=== PATIENT | female | born 1950 | race Caucasian/White ===

== ENCOUNTER 2022-11-18 07:53 | Inpatient (IN) | payer MEDICARE, MEDICAID ==
[2022-11-18] MEDS ORDERED: Ondansetron ODT 4 MG TAB PO PRN (16:52)
[2022-11-18] MEDS ORDERED: Meclizine HCl 25 MG TAB PO PRN (16:52)
[2022-11-18] MEDS ORDERED: Acetaminophen 325 MG TAB PO PRN (16:55)
[2022-11-18] MEDS ORDERED: Promethazine 25 MG TAB PO PRN (18:40)
[2022-11-18] MEDS: HYDROcodone/Acetaminophen 10/325 mg Tablet PO SCH (18:43)
[2022-11-18] MEDS: Cyclobenzaprine 10 MG TAB PO SCH (20:53)
[2022-11-18] MEDS: Gabapentin 300 MG CAP PO SCH (20:53)
[2022-11-18] MEDS: traZODone HCl 50 MG TAB PO SCH (20:53)
[2022-11-18] MEDS: Mycophenolate 250 MG CAP PO SCH (20:54)
[2022-11-18] MEDS: hydrOXYzine 25 MG TAB PO SCH (20:54)
[2022-11-19] MEDS: HYDROcodone/Acetaminophen 10/325 mg Tablet PO SCH ×4 (00:42→17:04)
[2022-11-19 06:01] LABS: Sodium 136 mmol/L (136-145)
[2022-11-19 06:02] LABS: Albumin 2.9 g/dL (3.4-4.8); Alkaline Phosphatase 57 U/L (40-110); BUN (Urea Nitrogen) 20 mg/dL (9.8-20.1); Bilirubin, Total 0.4 mg/dL (0.2-1.2); Calc. Creatinine Clearance 93 mL/min (70-130); Calcium 8.7 mg/dL (7.6-10.4); Carbon Dioxide 27 mmol/L (23-31); Chloride 99 mmol/L (98-107); Estimated GFR 96; Globulin 2.8 g/dL (2.4-3.5); Glucose 92 mg/dL (83-110); Potassium 4.2 mmol/L (3.5-5.1); Protein, Total 5.7 g/dL (5.8-8.1)
[2022-11-19 06:03] LABS: ALT (SGPT) 28 U/L (8-55); AST (SGOT) 19 U/L (5-34)
[2022-11-19 06:06] LABS: Hematocrit 40.1 % (36.0-47.0); Hemoglobin 12.3 g/dL (12.0-16.0); White Blood Cell (WBC) Count 9.3 10x3/uL (4.8-10.8)
[2022-11-19 06:07] LABS: #Basophils 0.1 thou/uL (0.0-0.2); #Lymphocytes 1.4 thou/uL (1.20-3.40); #Monocytes 0.3 thou/uL (0.11-0.59); #Neutrophils 7.5 thou/uL (1.40-6.50); %Monocytes 2.9 % (0.0-10.0); %Neutrophils 81.1 % (42.0-75.0); Mean Corpuscular HGB CONC 30.7 g/dL (32.0-36.0); Mean Corpuscular Hemoglobin 23.2 pg (27.0-31.0); Mean Corpuscular Volume 75.7 fl (78.0-98.0); Mean Platelet Volume 8.7 fL (7.4-10.4); Platelet Count 181 10x3/uL (130-400); RBC Distribution Width 14.4 % (11.5-14.5)
[2022-11-19] MEDS: Levothyroxine Sodium 100 MCG TAB PO SCH (06:23)
[2022-11-19] MEDS: Levothyroxine Sodium 75 MCG TAB PO SCH (06:23)
[2022-11-19] MEDS: Ascorbic Acid 500 mg Chewable Tablet PO SCH (08:58)
[2022-11-19] MEDS: Mycophenolate 250 MG CAP PO SCH ×2 (09:00→21:06)
[2022-11-19] MEDS: dilTIAZem CD 120 MG CAP PO SCH (09:01)
[2022-11-19] MEDS: Cyclobenzaprine 10 MG TAB PO SCH ×3 (09:02→21:05)
[2022-11-19] MEDS: Rosuvastatin 10 MG TAB PO SCH (09:03)
[2022-11-19] MEDS: hydrOXYzine 25 MG TAB PO SCH ×3 (09:04→21:06)
[2022-11-19] MEDS: Gabapentin 300 MG CAP PO SCH ×3 (09:04→21:05)
[2022-11-19] MEDS: Clopidogrel Bisulfate 75 MG TAB PO SCH (09:04)
[2022-11-19] MEDS: Zinc Sulfate 220 MG CAP PO SCH (09:04)
[2022-11-19] MEDS: Senokot S 8.6-50 MG TAB PO PRN (15:03)
[2022-11-19] MEDS: traZODone HCl 50 MG TAB PO SCH (21:06)
[2022-11-20] MEDS: HYDROcodone/Acetaminophen 10/325 mg Tablet PO SCH ×5 (00:01→23:54)
[2022-11-20] MEDS: Levothyroxine Sodium 100 MCG TAB PO SCH (05:56)
[2022-11-20] MEDS: Levothyroxine Sodium 75 MCG TAB PO SCH (05:56)
[2022-11-20] MEDS: Gabapentin 300 MG CAP PO SCH ×3 (09:08→20:52)
[2022-11-20] MEDS: Zinc Sulfate 220 MG CAP PO SCH (09:08)
[2022-11-20] MEDS: dilTIAZem CD 120 MG CAP PO SCH (09:09)
[2022-11-20] MEDS: Cyclobenzaprine 10 MG TAB PO SCH ×3 (09:09→20:53)
[2022-11-20] MEDS: hydrOXYzine 25 MG TAB PO SCH ×3 (09:10→20:51)
[2022-11-20] MEDS: Ascorbic Acid 500 mg Chewable Tablet PO SCH (09:10)
[2022-11-20] MEDS: Mycophenolate 250 MG CAP PO SCH ×2 (09:10→20:51)
[2022-11-20] MEDS: Clopidogrel Bisulfate 75 MG TAB PO SCH (09:10)
[2022-11-20] MEDS: Rosuvastatin 10 MG TAB PO SCH (09:10)
[2022-11-20] MEDS: traZODone HCl 50 MG TAB PO SCH (20:51)
[2022-11-21] MEDS: HYDROcodone/Acetaminophen 10/325 mg Tablet PO SCH ×3 (05:52→17:44)
[2022-11-21] MEDS: Levothyroxine Sodium 100 MCG TAB PO SCH (05:52)
[2022-11-21] MEDS: Levothyroxine Sodium 75 MCG TAB PO SCH (05:52)
[2022-11-21] MEDS: Gabapentin 300 MG CAP PO SCH ×3 (08:28→20:39)
[2022-11-21] MEDS: Mycophenolate 250 MG CAP PO SCH ×2 (08:28→20:52)
[2022-11-21] MEDS: Zinc Sulfate 220 MG CAP PO SCH (08:28)
[2022-11-21] MEDS: Rosuvastatin 10 MG TAB PO SCH (08:29)
[2022-11-21] MEDS: hydrOXYzine 25 MG TAB PO SCH ×3 (08:29→20:40)
[2022-11-21] MEDS: Cyclobenzaprine 10 MG TAB PO SCH ×3 (08:29→20:53)
[2022-11-21] MEDS: Ascorbic Acid 500 mg Chewable Tablet PO SCH (08:30)
[2022-11-21] MEDS: Clopidogrel Bisulfate 75 MG TAB PO SCH (08:30)
[2022-11-21] MEDS: dilTIAZem CD 120 MG CAP PO SCH (08:30)
[2022-11-21] MEDS ORDERED: Ipratropium/Albuterol 3 ML NEB NEB PRN (19:01)
[2022-11-21] MEDS ORDERED: Meclizine HCl 25 MG TAB PO PRN (19:28)
[2022-11-21] MEDS: traZODone HCl 50 MG TAB PO SCH (20:39)
[2022-11-21] MEDS: Budesonide 0.5 MG/2 ML NEB NEB SCH (20:41)
[2022-11-21] MEDS ORDERED: Budesonide 0.5 MG/2 ML NEB NEB SCH (21:00)
[2022-11-22] MEDS: HYDROcodone/Acetaminophen 10/325 mg Tablet PO SCH ×5 (01:24→23:32)
[2022-11-22] MEDS: Levothyroxine Sodium 100 MCG TAB PO SCH (06:10)
[2022-11-22] MEDS: Levothyroxine Sodium 75 MCG TAB PO SCH (06:10)
[2022-11-22] MEDS: Rosuvastatin 10 MG TAB PO SCH (09:17)
[2022-11-22] MEDS: hydrOXYzine 25 MG TAB PO SCH ×3 (09:17→21:33)
[2022-11-22] MEDS: Zinc Sulfate 220 MG CAP PO SCH (09:17)
[2022-11-22] MEDS: Ascorbic Acid 500 mg Chewable Tablet PO SCH (09:17)
[2022-11-22] MEDS: Budesonide 0.5 MG/2 ML NEB NEB SCH ×2 (09:19→21:33)
[2022-11-22] MEDS: Gabapentin 300 MG CAP PO SCH ×3 (09:20→21:32)
[2022-11-22] MEDS: Clopidogrel Bisulfate 75 MG TAB PO SCH (09:21)
[2022-11-22] MEDS: Cyclobenzaprine 10 MG TAB PO SCH ×3 (09:21→21:37)
[2022-11-22] MEDS: Mycophenolate 250 MG CAP PO SCH ×2 (09:22→21:33)
[2022-11-22] MEDS: dilTIAZem CD 120 MG CAP PO SCH (09:22)
[2022-11-22] MEDS: traZODone HCl 50 MG TAB PO SCH (21:33)
[2022-11-23] MEDS: HYDROcodone/Acetaminophen 10/325 mg Tablet PO SCH ×4 (06:15→23:44)
[2022-11-23] MEDS: Levothyroxine Sodium 100 MCG TAB PO SCH (06:15)
[2022-11-23] MEDS: Levothyroxine Sodium 75 MCG TAB PO SCH (06:15)
[2022-11-23] MEDS ORDERED: Calcium Carbonate 500 MG ChewTAB PO PRN (08:01)
[2022-11-23] MEDS: Ascorbic Acid 500 mg Chewable Tablet PO SCH (08:11)
[2022-11-23] MEDS: Clopidogrel Bisulfate 75 MG TAB PO SCH (08:11)
[2022-11-23] MEDS: Cyclobenzaprine 10 MG TAB PO SCH ×3 (08:11→20:41)
[2022-11-23] MEDS: Rosuvastatin 10 MG TAB PO SCH (08:12)
[2022-11-23] MEDS: hydrOXYzine 25 MG TAB PO SCH ×3 (08:12→20:41)
[2022-11-23] MEDS: dilTIAZem CD 120 MG CAP PO SCH (08:13)
[2022-11-23] MEDS: Zinc Sulfate 220 MG CAP PO SCH (08:13)
[2022-11-23] MEDS: Gabapentin 300 MG CAP PO SCH ×3 (08:17→20:40)
[2022-11-23] MEDS: Mycophenolate 250 MG CAP PO SCH ×2 (08:18→20:40)
[2022-11-23] MEDS: Budesonide 0.5 MG/2 ML NEB NEB SCH ×2 (08:19→20:40)
[2022-11-23] MEDS: traZODone HCl 50 MG TAB PO SCH (20:41)
[2022-11-24] MEDS: HYDROcodone/Acetaminophen 10/325 mg Tablet PO SCH ×4 (05:33→23:26)
[2022-11-24] MEDS: Levothyroxine Sodium 75 MCG TAB PO SCH (05:33)
[2022-11-24] MEDS: Levothyroxine Sodium 100 MCG TAB PO SCH (05:33)
[2022-11-24] MEDS: Mycophenolate 250 MG CAP PO SCH ×2 (08:05→20:37)
[2022-11-24] MEDS: Budesonide 0.5 MG/2 ML NEB NEB SCH ×2 (08:05→20:37)
[2022-11-24] MEDS: Zinc Sulfate 220 MG CAP PO SCH (08:07)
[2022-11-24] MEDS: Clopidogrel Bisulfate 75 MG TAB PO SCH (08:07)
[2022-11-24] MEDS: Rosuvastatin 10 MG TAB PO SCH (08:07)
[2022-11-24] MEDS: Ascorbic Acid 500 mg Chewable Tablet PO SCH (08:07)
[2022-11-24] MEDS: Gabapentin 300 MG CAP PO SCH ×3 (08:07→20:38)
[2022-11-24] MEDS: dilTIAZem CD 120 MG CAP PO SCH (08:07)
[2022-11-24] MEDS: hydrOXYzine 25 MG TAB PO SCH ×3 (08:08→20:38)
[2022-11-24] MEDS: Cyclobenzaprine 10 MG TAB PO SCH ×3 (08:08→20:37)
[2022-11-24] MEDS: traZODone HCl 50 MG TAB PO SCH (20:38)
[2022-11-25] MEDS: Levothyroxine Sodium 100 MCG TAB PO SCH (05:32)
[2022-11-25] MEDS: Levothyroxine Sodium 75 MCG TAB PO SCH (05:32)
[2022-11-25] MEDS: HYDROcodone/Acetaminophen 10/325 mg Tablet PO SCH ×3 (05:33→17:48)
[2022-11-25] MEDS: hydrOXYzine 25 MG TAB PO SCH ×3 (08:02→20:58)
[2022-11-25] MEDS: Gabapentin 300 MG CAP PO SCH ×3 (08:03→20:58)
[2022-11-25] MEDS: Budesonide 0.5 MG/2 ML NEB NEB SCH ×2 (08:04→20:58)
[2022-11-25] MEDS: Ascorbic Acid 500 mg Chewable Tablet PO SCH (08:04)
[2022-11-25] MEDS: Zinc Sulfate 220 MG CAP PO SCH (08:04)
[2022-11-25] MEDS: Mycophenolate 250 MG CAP PO SCH ×2 (08:04→20:58)
[2022-11-25] MEDS: dilTIAZem CD 120 MG CAP PO SCH (08:05)
[2022-11-25] MEDS: Cyclobenzaprine 10 MG TAB PO SCH ×3 (08:05→20:58)
[2022-11-25] MEDS: Clopidogrel Bisulfate 75 MG TAB PO SCH (08:06)
[2022-11-25] MEDS: Rosuvastatin 10 MG TAB PO SCH (08:06)
[2022-11-25] MEDS: traZODone HCl 50 MG TAB PO SCH (20:58)
[2022-11-26] MEDS: HYDROcodone/Acetaminophen 10/325 mg Tablet PO SCH ×5 (01:18→23:52)
[2022-11-26] MEDS: Levothyroxine Sodium 100 MCG TAB PO SCH (05:17)
[2022-11-26] MEDS: Levothyroxine Sodium 75 MCG TAB PO SCH (05:17)
[2022-11-26 06:20] LABS: #Basophils 0.1 thou/uL (0.0-0.2); #Eosinphils 0.1 thou/uL (0.0-0.7); #Lymphocytes 1.3 thou/uL (1.20-3.40); #Monocytes 0.7 thou/uL (0.11-0.59); #Neutrophils 6.6 thou/uL (1.40-6.50); %Basophils 0.7 % (0.0-1.0); %Eosinophils 1.6 % (0.0-10.0); %Lymphocytes 15.1 % (21.0-51.0); %Monocytes 7.5 % (0.0-10.0); Hematocrit 25.7 % (36.0-47.0); Hemoglobin 9.3 g/dL (12.0-16.0); Mean Corpuscular HGB CONC 36.3 g/dL (32.0-36.0); Mean Corpuscular Hemoglobin 28.3 pg (27.0-31.0); Mean Platelet Volume 8.7 fL (7.4-10.4); Platelet Count 105 10x3/uL (130-400); RBC Distribution Width 16.1 % (11.5-14.5); Red Blood Cell (RBC) Count 3.29 mill/uL (4.20-5.40); White Blood Cell (WBC) Count 8.8 10x3/uL (4.8-10.8)
[2022-11-26 06:29] LABS: Anion Gap 10 mmol/L (10-20); BUN (Urea Nitrogen) 8 mg/dL (9.8-20.1); Calc. Creatinine Clearance 100 mL/min (70-130); Calcium 8.8 mg/dL (7.8-10.44); Carbon Dioxide 28 mmol/L (23-31); Chloride 103 mmol/L (98-107); Estimated GFR 98; Glucose 79 mg/dL (83-110); Sodium 138 mmol/L (136-145)
[2022-11-26] MEDS: Cyclobenzaprine 10 MG TAB PO SCH ×3 (08:56→20:38)
[2022-11-26] MEDS: Zinc Sulfate 220 MG CAP PO SCH (08:56)
[2022-11-26] MEDS: Gabapentin 300 MG CAP PO SCH ×3 (08:57→20:39)
[2022-11-26] MEDS: Ascorbic Acid 500 mg Chewable Tablet PO SCH (08:57)
[2022-11-26] MEDS: dilTIAZem CD 120 MG CAP PO SCH (08:58)
[2022-11-26] MEDS: Budesonide 0.5 MG/2 ML NEB NEB SCH ×2 (08:59→20:38)
[2022-11-26] MEDS: Mycophenolate 250 MG CAP PO SCH ×2 (08:59→20:42)
[2022-11-26] MEDS: Clopidogrel Bisulfate 75 MG TAB PO SCH (08:59)
[2022-11-26] MEDS: Rosuvastatin 10 MG TAB PO SCH (09:00)
[2022-11-26] MEDS: hydrOXYzine 25 MG TAB PO SCH ×3 (09:00→20:39)
[2022-11-26] MEDS ORDERED: Potassium Chloride 20 MEQ TAB PO SCH (10:45)
[2022-11-26] MEDS: traZODone HCl 50 MG TAB PO SCH (20:39)
[2022-11-27] MEDS: HYDROcodone/Acetaminophen 10/325 mg Tablet PO SCH ×3 (05:54→18:34)
[2022-11-27] MEDS: Levothyroxine Sodium 100 MCG TAB PO SCH (05:54)
[2022-11-27] MEDS: Levothyroxine Sodium 75 MCG TAB PO SCH (05:54)
[2022-11-27 06:32] LABS: #Basophils 0.1 thou/uL (0.0-0.2); #Eosinphils 0.1 thou/uL (0.0-0.7); #Lymphocytes 1.5 thou/uL (1.20-3.40); #Monocytes 0.6 thou/uL (0.11-0.59); #Neutrophils 5.5 thou/uL (1.40-6.50); %Basophils 0.9 % (0.0-1.0); %Eosinophils 1.8 % (0.0-10.0); %Lymphocytes 19.7 % (21.0-51.0); %Monocytes 7.5 % (0.0-10.0); %Neutrophils 70.2 % (42.0-75.0); Hematocrit 30.4 % (36.0-47.0); Hemoglobin 9.9 g/dL (12.0-16.0); Mean Corpuscular HGB CONC 32.6 g/dL (32.0-36.0); Mean Corpuscular Hemoglobin 25.6 pg (27.0-31.0); Mean Corpuscular Volume 78.3 fl (78.0-98.0); Mean Platelet Volume 8.3 fL (7.4-10.4); Platelet Count 112 10x3/uL (130-400); Red Blood Cell (RBC) Count 3.88 mill/uL (4.20-5.40); White Blood Cell (WBC) Count 7.8 10x3/uL (4.8-10.8)
[2022-11-27 06:38] LABS: Anion Gap 10 mmol/L (10-20); BUN (Urea Nitrogen) 9 mg/dL (9.8-20.1); Calc. Creatinine Clearance 89 mL/min (70-130); Calcium 9.1 mg/dL (7.8-10.44); Carbon Dioxide 30 mmol/L (23-31); Chloride 102 mmol/L (98-107); Estimated GFR 95; Glucose 92 mg/dL (83-110); Magnesium 1.4 mg/dL (1.6-2.6); Potassium 3.2 mmol/L (3.5-5.1); Sodium 139 mmol/L (136-145)
[2022-11-27] MEDS: Gabapentin 300 MG CAP PO SCH ×3 (09:48→20:15)
[2022-11-27] MEDS: Mycophenolate 250 MG CAP PO SCH ×2 (09:49→20:13)
[2022-11-27] MEDS: Ascorbic Acid 500 mg Chewable Tablet PO SCH (09:50)
[2022-11-27] MEDS: Clopidogrel Bisulfate 75 MG TAB PO SCH (09:50)
[2022-11-27] MEDS: hydrOXYzine 25 MG TAB PO SCH ×3 (09:50→20:14)
[2022-11-27] MEDS: Zinc Sulfate 220 MG CAP PO SCH (09:50)
[2022-11-27] MEDS: Rosuvastatin 10 MG TAB PO SCH (09:51)
[2022-11-27] MEDS: Cyclobenzaprine 10 MG TAB PO SCH ×3 (09:52→20:13)
[2022-11-27] MEDS: dilTIAZem CD 120 MG CAP PO SCH (10:02)
[2022-11-27] MEDS: Budesonide 0.5 MG/2 ML NEB NEB SCH ×2 (10:04→20:15)
[2022-11-27] MEDS ORDERED: Potassium Chloride 20 MEQ TAB PO SCH (17:00)
[2022-11-27] MEDS: Magnesium Oxide 400 MG TAB PO SCH (20:14)
[2022-11-27] MEDS: traZODone HCl 50 MG TAB PO SCH (20:14)
[2022-11-28] MEDS: HYDROcodone/Acetaminophen 10/325 mg Tablet PO SCH ×4 (01:00→17:08)
[2022-11-28] MEDS: Levothyroxine Sodium 100 MCG TAB PO SCH (05:47)
[2022-11-28] MEDS: Levothyroxine Sodium 75 MCG TAB PO SCH (05:48)
[2022-11-28 06:39] LABS: Anion Gap 13 mmol/L (10-20); BUN (Urea Nitrogen) 7 mg/dL (9.8-20.1); Calc. Creatinine Clearance 105 mL/min (70-130); Calcium 8.7 mg/dL (7.8-10.44); Carbon Dioxide 30 mmol/L (23-31); Chloride 102 mmol/L (98-107); Estimated GFR 99; Glucose 79 mg/dL (83-110); Magnesium 1.4 mg/dL (1.6-2.6); Potassium 3.6 mmol/L (3.5-5.1); Sodium 141 mmol/L (136-145)
[2022-11-28] MEDS: Mycophenolate 250 MG CAP PO SCH ×2 (08:29→20:20)
[2022-11-28] MEDS: Cyclobenzaprine 10 MG TAB PO SCH ×3 (08:30→20:21)
[2022-11-28] MEDS: Gabapentin 300 MG CAP PO SCH ×3 (08:30→20:20)
[2022-11-28] MEDS: Magnesium Oxide 400 MG TAB PO SCH ×2 (08:31→20:21)
[2022-11-28] MEDS: Rosuvastatin 10 MG TAB PO SCH (08:31)
[2022-11-28] MEDS: hydrOXYzine 25 MG TAB PO SCH ×3 (08:31→20:21)
[2022-11-28] MEDS: dilTIAZem CD 120 MG CAP PO SCH (08:31)
[2022-11-28] MEDS: Zinc Sulfate 220 MG CAP PO SCH (08:31)
[2022-11-28] MEDS: Ascorbic Acid 500 mg Chewable Tablet PO SCH (08:32)
[2022-11-28] MEDS: Clopidogrel Bisulfate 75 MG TAB PO SCH (08:32)
[2022-11-28] MEDS: Budesonide 0.5 MG/2 ML NEB NEB SCH ×2 (08:33→20:19)
[2022-11-28] MEDS: Sodium Chloride 0.65% Nasal 44 ML BOT EA NARE PRN (11:20)
[2022-11-28] MEDS: traZODone HCl 50 MG TAB PO SCH (20:21)
[2022-11-29] MEDS: HYDROcodone/Acetaminophen 10/325 mg Tablet PO SCH ×4 (01:08→17:35)
[2022-11-29] MEDS: Levothyroxine Sodium 100 MCG TAB PO SCH (05:40)
[2022-11-29] MEDS: Levothyroxine Sodium 75 MCG TAB PO SCH (05:40)
[2022-11-29] MEDS: hydrOXYzine 25 MG TAB PO SCH ×3 (08:35→21:13)
[2022-11-29] MEDS: Gabapentin 300 MG CAP PO SCH ×3 (08:35→21:14)
[2022-11-29] MEDS: dilTIAZem CD 120 MG CAP PO SCH (08:35)
[2022-11-29] MEDS: Zinc Sulfate 220 MG CAP PO SCH (08:35)
[2022-11-29] MEDS: Mycophenolate 250 MG CAP PO SCH ×2 (08:35→21:14)
[2022-11-29] MEDS: Cyclobenzaprine 10 MG TAB PO SCH ×3 (08:36→21:12)
[2022-11-29] MEDS: Rosuvastatin 10 MG TAB PO SCH (08:36)
[2022-11-29] MEDS: Magnesium Oxide 400 MG TAB PO SCH ×2 (08:36→21:13)
[2022-11-29] MEDS: Budesonide 0.5 MG/2 ML NEB NEB SCH ×2 (08:36→21:12)
[2022-11-29] MEDS: Ascorbic Acid 500 mg Chewable Tablet PO SCH (08:36)
[2022-11-29] MEDS: Clopidogrel Bisulfate 75 MG TAB PO SCH (08:36)
[2022-11-29] MEDS: traZODone HCl 50 MG TAB PO SCH (21:13)
[2022-11-30] MEDS: Levothyroxine Sodium 100 MCG TAB PO SCH (05:38)
[2022-11-30] MEDS: Levothyroxine Sodium 75 MCG TAB PO SCH (05:38)
[2022-11-30] MEDS: HYDROcodone/Acetaminophen 10/325 mg Tablet PO SCH ×4 (05:39→17:47)
[2022-11-30 06:01] LABS: #Eosinphils 0.2 thou/uL (0.0-0.7); #Lymphocytes 1.2 thou/uL (1.20-3.40); #Monocytes 0.5 thou/uL (0.11-0.59); #Neutrophils 3.1 thou/uL (1.40-6.50); %Lymphocytes 24.6 % (21.0-51.0); %Monocytes 8.9 % (0.0-10.0); %Neutrophils 61.5 % (42.0-75.0); Hematocrit 27.6 % (36.0-47.0); Hemoglobin 8.7 g/dL (12.0-16.0); Mean Corpuscular HGB CONC 31.6 g/dL (32.0-36.0); Mean Corpuscular Hemoglobin 24.9 pg (27.0-31.0); Mean Corpuscular Volume 78.8 fl (78.0-98.0); Mean Platelet Volume 8.9 fL (7.4-10.4); Platelet Count 109 10x3/uL (130-400); RBC Distribution Width 14.9 % (11.5-14.5); White Blood Cell (WBC) Count 5.1 10x3/uL (4.8-10.8)
[2022-11-30 06:17] LABS: Anion Gap 13 mmol/L (10-20); BUN (Urea Nitrogen) 8 mg/dL (9.8-20.1); Calc. Creatinine Clearance 107 mL/min (70-130); Calcium 8.5 mg/dL (7.8-10.44); Carbon Dioxide 28 mmol/L (23-31); Chloride 100 mmol/L (98-107); Estimated GFR 99; Glucose 83 mg/dL (83-110); Magnesium 1.5 mg/dL (1.6-2.6); Sodium 138 mmol/L (136-145)
[2022-11-30] MEDS: Magnesium Oxide 400 MG TAB PO SCH ×2 (09:34→20:21)
[2022-11-30] MEDS: Ascorbic Acid 500 mg Chewable Tablet PO SCH (09:34)
[2022-11-30] MEDS: Rosuvastatin 10 MG TAB PO SCH (09:34)
[2022-11-30] MEDS: Cyclobenzaprine 10 MG TAB PO SCH ×3 (09:34→20:15)
[2022-11-30] MEDS: Zinc Sulfate 220 MG CAP PO SCH (09:34)
[2022-11-30] MEDS: Clopidogrel Bisulfate 75 MG TAB PO SCH (09:34)
[2022-11-30] MEDS: hydrOXYzine 25 MG TAB PO SCH ×3 (09:35→20:21)
[2022-11-30] MEDS: Gabapentin 300 MG CAP PO SCH ×3 (09:35→20:20)
[2022-11-30] MEDS: dilTIAZem CD 120 MG CAP PO SCH (09:36)
[2022-11-30] MEDS: Mycophenolate 250 MG CAP PO SCH ×2 (09:36→20:20)
[2022-11-30] MEDS: Budesonide 0.5 MG/2 ML NEB NEB SCH ×2 (09:37→20:15)
[2022-11-30] MEDS: Sodium Chloride 0.65% Nasal 44 ML BOT EA NARE PRN (09:44)
[2022-11-30] MEDS ORDERED: Potassium Chloride 20 MEQ TAB PO SCH (16:00)
[2022-11-30] MEDS: traZODone HCl 50 MG TAB PO SCH (20:20)
[2022-12-01] MEDS: HYDROcodone/Acetaminophen 10/325 mg Tablet PO SCH ×5 (00:10→23:31)
[2022-12-01] MEDS: Levothyroxine Sodium 75 MCG TAB PO SCH (05:47)
[2022-12-01] MEDS: Levothyroxine Sodium 100 MCG TAB PO SCH (05:47)
[2022-12-01 06:16] LABS: Anion Gap 12 mmol/L (10-20); BUN (Urea Nitrogen) 8 mg/dL (9.8-20.1); Calc. Creatinine Clearance 103 mL/min (70-130); Calcium 8.5 mg/dL (7.8-10.44); Carbon Dioxide 30 mmol/L (23-31); Chloride 102 mmol/L (98-107); Estimated GFR 98; Glucose 81 mg/dL (83-110); Potassium 3.6 mmol/L (3.5-5.1); Sodium 140 mmol/L (136-145)
[2022-12-01] MEDS: Mycophenolate 250 MG CAP PO SCH ×2 (08:39→20:42)
[2022-12-01] MEDS: Gabapentin 300 MG CAP PO SCH ×3 (08:40→20:43)
[2022-12-01] MEDS: hydrOXYzine 25 MG TAB PO SCH ×3 (08:40→20:53)
[2022-12-01] MEDS: Senokot S 8.6-50 MG TAB PO PRN (08:40)
[2022-12-01] MEDS: Ascorbic Acid 500 mg Chewable Tablet PO SCH (08:41)
[2022-12-01] MEDS: Rosuvastatin 10 MG TAB PO SCH (08:41)
[2022-12-01] MEDS: Cyclobenzaprine 10 MG TAB PO SCH ×3 (08:41→20:43)
[2022-12-01] MEDS: Zinc Sulfate 220 MG CAP PO SCH (08:41)
[2022-12-01] MEDS: Potassium Chloride 20 MEQ TAB PO SCH (08:41)
[2022-12-01] MEDS: dilTIAZem CD 120 MG CAP PO SCH (08:41)
[2022-12-01] MEDS: Magnesium Oxide 400 MG TAB PO SCH ×2 (08:41→20:44)
[2022-12-01] MEDS: Clopidogrel Bisulfate 75 MG TAB PO SCH (08:41)
[2022-12-01] MEDS: Budesonide 0.5 MG/2 ML NEB NEB SCH ×2 (08:42→20:42)
[2022-12-01 16:17] VITALS: BMI 26.4
[2022-12-01] MEDS: traZODone HCl 50 MG TAB PO SCH (20:44)
[2022-12-02] MEDS: Levothyroxine Sodium 100 MCG TAB PO SCH (05:33)
[2022-12-02] MEDS: Levothyroxine Sodium 75 MCG TAB PO SCH (05:33)
[2022-12-02] MEDS: HYDROcodone/Acetaminophen 10/325 mg Tablet PO SCH ×2 (05:33→11:41)
[2022-12-02 07:35] VITALS: TEMP 98.2
[2022-12-02] MEDS: Ascorbic Acid 500 mg Chewable Tablet PO SCH (09:13)
[2022-12-02] MEDS: Gabapentin 300 MG CAP PO SCH (09:13)
[2022-12-02] MEDS: Mycophenolate 250 MG CAP PO SCH (09:14)
[2022-12-02] MEDS: Magnesium Oxide 400 MG TAB PO SCH (09:15)
[2022-12-02] MEDS: Cyclobenzaprine 10 MG TAB PO SCH (09:15)
[2022-12-02] MEDS: Rosuvastatin 10 MG TAB PO SCH (09:15)
[2022-12-02] MEDS: hydrOXYzine 25 MG TAB PO SCH (09:15)
[2022-12-02] MEDS: Potassium Chloride 20 MEQ TAB PO SCH (09:16)
[2022-12-02] MEDS: Zinc Sulfate 220 MG CAP PO SCH (09:16)
[2022-12-02] MEDS: dilTIAZem CD 120 MG CAP PO SCH (09:16)
[2022-12-02] MEDS: Clopidogrel Bisulfate 75 MG TAB PO SCH (09:16)
[2022-12-02] MEDS: Budesonide 0.5 MG/2 ML NEB NEB SCH (09:17)
[2022-12-02] MEDS: Sodium Chloride 0.65% Nasal 44 ML BOT EA NARE PRN (09:18)
[2022-12-02 13:26] VITALS: BP 108/71
== END 2022-12-02 13:50 | disposition home health service (06) | DRG 948 ==
LOC: NAV ACUTE 17:54
PROVIDERS: ADMIT Family Medicine; ATTEND Family Medicine
DX: R53.81 Other malaise (principal); J96.11 Chronic respiratory failure with hypoxia; I25.10 Atherosclerotic heart disease of native coronary artery without angina pectoris; J44.9 Chronic obstructive pulmonary disease, unspecified; I10 Essential (primary) hypertension; E78.5 Hyperlipidemia, unspecified; E03.9 Hypothyroidism, unspecified; E11.9 Type 2 diabetes mellitus without complications; J84.10 Pulmonary fibrosis, unspecified; G47.00 Insomnia, unspecified; G89.29 Other chronic pain; R19.7 Diarrhea, unspecified; R60.0 Localized edema; E87.6 Hypokalemia; D50.9 Iron deficiency anemia, unspecified; E83.42 Hypomagnesemia; Z90.710 Acquired absence of both cervix and uterus; Z98.890 Other specified postprocedural states; Z82.49 Family history of ischemic heart disease and other diseases of the circulatory system; Z87.891 Personal history of nicotine dependence; Z88.5 Allergy status to narcotic agent; Z91.040 Latex allergy status; Z88.0 Allergy status to penicillin; Z88.8 Allergy status to other drugs, medicaments and biological substances; Z79.899 Other long term (current) drug therapy; Z86.16 Personal history of COVID-19; Z79.02 Long term (current) use of antithrombotics/antiplatelets; Z79.890 Hormone replacement therapy
CPT/HCPCS: 36415; 80048; 80053; 83735; 85025; 94640; J1650; J7517; J7611; J7626

== ENCOUNTER 2023-04-05 12:55 | Inpatient (IN) | payer MEDICARE, MEDICAID ==
[2023-04-08] MEDS ORDERED: HumaLOG 300 UNITS/3 ML VIAL SC PRN (16:52)
[2023-04-08] MEDS ORDERED: cloNIDine 0.1 MG TAB PO PRN (16:52)
[2023-04-08] MEDS ORDERED: Acetaminophen 650 MG Suppository PR PRN (16:52)
[2023-04-08] MEDS ORDERED: Benzocaine/Menthol 1 LOZ LOZ PO PRN (16:52)
[2023-04-08] MEDS ORDERED: Glucagon 1 MG/ML KIT IM PRN (16:52)
[2023-04-08] MEDS ORDERED: Acetaminophen 325 MG TAB PO PRN (16:52)
[2023-04-08] MEDS ORDERED: Artificial Tear Sol 15 ML BOT EA EYE PRN (16:52)
[2023-04-08] MEDS ORDERED: Benzonatate 100 MG CAP PO PRN (16:52)
[2023-04-08] MEDS ORDERED: Dextrose 50% Abboject 50 ML SYRINGE SLOW IVP PRN (16:52)
[2023-04-08] MEDS: HYDROcodone/Acetaminophen 5/325 mg Tablet PO PRN (18:21)
[2023-04-08] MEDS: Budesonide 0.5 MG/2 ML NEB NEB SCH (18:23)
[2023-04-08] MEDS: Albuterol 2.5 MG (3 mL) NEB NEB SCH (18:23)
[2023-04-08] MEDS: Mycophenolate 250 MG CAP PO SCH (20:57)
[2023-04-08] MEDS: Gabapentin 300 MG CAP PO SCH (20:58)
[2023-04-08] MEDS: traZODone HCl 50 MG TAB PO SCH (20:58)
[2023-04-09 05:16] LABS: #Basophils 0.1 thou/uL (0.0-0.2); #Eosinphils 0.7 thou/uL (0.0-0.7); #Lymphocytes 1.3 thou/uL (1.20-3.40); #Monocytes 0.6 thou/uL (0.11-0.59); #Neutrophils 3.8 thou/uL (1.40-6.50); %Basophils 1.1 % (0.0-1.0); %Eosinophils 11.4 % (0.0-10.0); %Lymphocytes 19.9 % (21.0-51.0); %Monocytes 8.5 % (0.0-10.0); %Neutrophils 59.1 % (42.0-75.0); Hematocrit 35.4 % (36.0-47.0); Hemoglobin 11.4 g/dL (12.0-16.0); Mean Corpuscular HGB CONC 32.1 g/dL (32.0-36.0); Mean Corpuscular Volume 90.5 fl (78.0-98.0); Mean Platelet Volume 9.1 fL (7.4-10.4); Platelet Count 189 10x3/uL (130-400); RBC Distribution Width 14.5 % (11.5-14.5); Red Blood Cell (RBC) Count 3.91 mill/uL (4.20-5.40); White Blood Cell (WBC) Count 6.5 10x3/uL (4.8-10.8)
[2023-04-09 05:31] LABS: ALT (SGPT) 12 U/L (8-55); AST (SGOT) 16 U/L (5-34); Albumin 3.4 g/dL (3.4-4.8); Alkaline Phosphatase 60 U/L (40-110); Anion Gap 13 mmol/L (10-20); BUN (Urea Nitrogen) 10 mg/dL (9.8-20.1); Bilirubin, Total 0.6 mg/dL (0.2-1.2); Calc. Creatinine Clearance 85 mL/min (70-130); Carbon Dioxide 31 mmol/L (23-31); Chloride 98 mmol/L (98-107); Estimated GFR 95; Globulin 2.9 g/dL (2.4-3.5); Glucose 85 mg/dL (83-110); Potassium 4.6 mmol/L (3.5-5.1); Protein, Total 6.3 g/dL (5.8-8.1); Sodium 137 mmol/L (136-145)
[2023-04-09] MEDS: Levothyroxine 150 MCG TAB PO SCH (05:33)
[2023-04-09] MEDS: Enoxaparin 40 MG (0.4 mL) SYRINGE SC SCH (08:29)
[2023-04-09] MEDS: Clopidogrel Bisulfate 75 MG TAB PO SCH (08:32)
[2023-04-09] MEDS: Empagliflozin 10 MG TAB PO SCH (08:33)
[2023-04-09] MEDS: Atorvastatin Calcium 20 MG TAB PO SCH (08:33)
[2023-04-09] MEDS: HYDROcodone/Acetaminophen 5/325 mg Tablet PO PRN (08:38)
[2023-04-09] MEDS: Spironolactone 25 MG TAB PO SCH (11:50)
[2023-04-09] MEDS: Senokot S 8.6-50 MG TAB PO PRN (15:31)
[2023-04-09] MEDS: tiZANidine HCl 4 MG TAB PO PRN (18:46)
[2023-04-10] MEDS: Ondansetron ODT 4 MG TAB PO PRN (17:14)
[2023-04-12] MEDS: Guaifenesin DM 100-10/5 ML UDCUP PO PRN (06:16)
[2023-04-12] MEDS: Calcium Carbonate 500 MG ChewTAB PO PRN (18:46)
[2023-04-13 05:54] LABS: #Basophils 0.1 thou/uL (0.0-0.2); #Eosinphils 0.4 thou/uL (0.0-0.7); #Lymphocytes 1.4 thou/uL (1.20-3.40); #Monocytes 0.8 thou/uL (0.11-0.59); #Neutrophils 6.6 thou/uL (1.40-6.50); %Basophils 0.7 % (0.0-1.0); %Lymphocytes 14.7 % (21.0-51.0); %Neutrophils 71.5 % (42.0-75.0); Hemoglobin 10.9 g/dL (12.0-16.0); Mean Corpuscular Hemoglobin 29.2 pg (27.0-31.0); Mean Corpuscular Volume 91.2 fl (78.0-98.0); Platelet Count 198 10x3/uL (130-400); RBC Distribution Width 14.6 % (11.5-14.5); Red Blood Cell (RBC) Count 3.73 mill/uL (4.20-5.40); White Blood Cell (WBC) Count 9.3 10x3/uL (4.8-10.8)
[2023-04-13 05:56] LABS: Bilirubin Negative (Negative); Blood, Urine Negative (Negative); Clarity Clear (Clear); Glucose, Urine (Dipstick) >=1000 mg/dL (Negative); Ketone, Urine Negative (Negative); Leukocyte Negative (Negative); Nitrite Negative (Negative); Protein, Urine (Dipstick) Negative (Neg-Trace); Urobilinogen 0.2 mg/dL (Less than 2)
[2023-04-13 06:00] LABS: Anion Gap 12 mmol/L (10-20); BUN (Urea Nitrogen) 9 mg/dL (9.8-20.1); Calc. Creatinine Clearance 87 mL/min (70-130); Calcium 8.8 mg/dL (7.8-10.44); Carbon Dioxide 27 mmol/L (23-31); Chloride 101 mmol/L (98-107); Estimated GFR 96; Glucose 92 mg/dL (83-110); Sodium 136 mmol/L (136-145)
[2023-04-13 06:24] LABS: Bacteria/HPF None Seen HPF (None Seen); RBC/HPF None Seen HPF (0-3); Squamous Epithelial None Seen HPF (0-3); WBC/HPF 0-3 HPF (0-3); Yeast-Budding 1+ HPF (None Seen)
[2023-04-14] MEDS: Fluconazole 100 MG TAB PO SCH (08:00)
[2023-04-14] MEDS: Sodium Chloride 0.65% Nasal 44 ML BOT EA NARE PRN (12:52)
[2023-04-14] MEDS: Benzonatate 100 MG CAP PO SCH (15:50)
[2023-04-16 06:36] LABS: #Basophils 0.1 thou/uL (0.0-0.2); #Eosinphils 0.6 thou/uL (0.0-0.7); #Lymphocytes 1.9 thou/uL (1.20-3.40); #Monocytes 0.8 thou/uL (0.11-0.59); #Neutrophils 9.7 thou/uL (1.40-6.50); %Basophils 0.6 % (0.0-1.0); %Eosinophils 4.3 % (0.0-10.0); %Lymphocytes 14.4 % (21.0-51.0); %Monocytes 6.3 % (0.0-10.0); %Neutrophils 74.4 % (42.0-75.0); Hematocrit 37.3 % (36.0-47.0); Mean Corpuscular HGB CONC 32.2 g/dL (32.0-36.0); Mean Corpuscular Hemoglobin 29.5 pg (27.0-31.0); Mean Corpuscular Volume 91.7 fl (78.0-98.0); Mean Platelet Volume 9.4 fL (7.4-10.4); Platelet Count 231 10x3/uL (130-400); RBC Distribution Width 14.9 % (11.5-14.5); Red Blood Cell (RBC) Count 4.07 mill/uL (4.20-5.40)
[2023-04-16] MEDS: hydrOXYzine 25 MG TAB PO PRN (11:47)
[2023-04-16] MEDS: Lorazepam 0.5 MG TAB PO PRN (13:53)
[2023-04-17] MEDS: Ondansetron ODT 4 MG TAB ONE (12:55)
[2023-04-17] MEDS: Benzonatate 100 MG CAP ONE (14:46)
[2023-04-17] MEDS: Budesonide 0.5 MG/2 ML NEB ONE ×2 (14:47→18:27)
[2023-04-18] MEDS: Albuterol 2.5 MG (3 mL) NEB ONE (17:53)
[2023-04-19 06:20] LABS: #Basophils 0.1 thou/uL (0.0-0.2); #Eosinphils 0.5 thou/uL (0.0-0.7); #Lymphocytes 2.4 thou/uL (1.20-3.40); #Monocytes 0.6 thou/uL (0.11-0.59); %Basophils 1.4 % (0.0-1.0); %Lymphocytes 27.8 % (21.0-51.0); %Monocytes 6.8 % (0.0-10.0); %Neutrophils 57.9 % (42.0-75.0); Hemoglobin 11.7 g/dL (12.0-16.0); Mean Corpuscular HGB CONC 31.7 g/dL (32.0-36.0); Mean Corpuscular Hemoglobin 29.3 pg (27.0-31.0); Mean Corpuscular Volume 92.7 fl (78.0-98.0); Mean Platelet Volume 9.5 fL (7.4-10.4); Platelet Count 258 10x3/uL (130-400); RBC Distribution Width 14.9 % (11.5-14.5); White Blood Cell (WBC) Count 8.7 10x3/uL (4.8-10.8)
[2023-04-19] MEDS: Albuterol 2.5 MG (3 mL) NEB ONE (06:34)
[2023-04-21] MEDS ORDERED: Ondansetron ODT 4 MG TAB SL PRN (11:45)
[2023-04-21] MEDS: Bisacodyl 5 MG TAB PO PRN (19:13)
[2023-04-22 05:37] LABS: #Basophils 0.1 thou/uL (0.0-0.2); #Eosinphils 0.4 thou/uL (0.0-0.7); #Monocytes 0.6 thou/uL (0.11-0.59); #Neutrophils 6.2 thou/uL (1.40-6.50); %Basophils 1.2 % (0.0-1.0); %Lymphocytes 21.8 % (21.0-51.0); %Monocytes 6.2 % (0.0-10.0); Hematocrit 38.3 % (36.0-47.0); Hemoglobin 11.9 g/dL (12.0-16.0); Mean Corpuscular Hemoglobin 29.1 pg (27.0-31.0); Mean Corpuscular Volume 94.1 fl (78.0-98.0); Mean Platelet Volume 10.5 fL (7.4-10.4); Platelet Count 278 10x3/uL (130-400); RBC Distribution Width 15.7 % (11.5-14.5); Red Blood Cell (RBC) Count 4.07 mill/uL (4.20-5.40); White Blood Cell (WBC) Count 9.3 10x3/uL (4.8-10.8)
[2023-04-22] MEDS: Lactulose 20 GM (30 mL) UDCUP PO PRN (09:11)
[2023-04-22] MEDS: Bisacodyl 10 MG SUPP PR PRN (10:38)
[2023-04-22] MEDS ORDERED: Phenylephrine HCl 0.25% SUPP PR PRN (10:39)
[2023-04-22] MEDS: Senokot S 8.6-50 MG TAB PO SCH (20:44)
[2023-04-23] MEDS: Ipratropium/Albuterol 3 ML NEB NEB PRN (20:43)
[2023-04-25 05:56] LABS: #Basophils 0.1 thou/uL (0.0-0.2); #Eosinphils 0.5 thou/uL (0.0-0.7); #Lymphocytes 2.9 thou/uL (1.20-3.40); #Monocytes 0.7 thou/uL (0.11-0.59); #Neutrophils 6.4 thou/uL (1.40-6.50); %Basophils 0.8 % (0.0-1.0); %Eosinophils 4.5 % (0.0-10.0); %Lymphocytes 27.2 % (21.0-51.0); %Monocytes 6.7 % (0.0-10.0); %Neutrophils 60.9 % (42.0-75.0); Hematocrit 39.7 % (36.0-47.0); Hemoglobin 12.2 g/dL (12.0-16.0); Mean Corpuscular HGB CONC 30.6 g/dL (32.0-36.0); Mean Corpuscular Hemoglobin 29.1 pg (27.0-31.0); Mean Corpuscular Volume 95.1 fl (78.0-98.0); Mean Platelet Volume 10.8 fL (7.4-10.4); Platelet Count 274 10x3/uL (130-400); Red Blood Cell (RBC) Count 4.18 mill/uL (4.20-5.40); White Blood Cell (WBC) Count 10.5 10x3/uL (4.8-10.8)
[2023-04-25] MEDS: Azithromycin 250 MG TAB PO SCH (12:38)
[2023-04-25] MEDS: predniSONE 20 MG TAB PO SCH (20:58)
[2023-04-26] MEDS: Azithromycin 250 MG TAB PO SCH (08:13)
[2023-04-26 13:00] VITALS: BMI 25.2
[2023-04-26 19:56] LABS: Bilirubin Negative (Negative); Blood, Urine Trace (Negative); Clarity Clear (Clear); Glucose, Urine (Dipstick) >=1000 mg/dL (Negative); Ketone, Urine 15 mg/dL (Negative); Leukocyte Trace (Negative); Nitrite Negative (Negative); Protein, Urine (Dipstick) Negative (Neg-Trace); Urobilinogen 0.2 mg/dL (Less than 2)
[2023-04-26 20:08] LABS: CAUTI Indications for Culture Dysuria,urgency,freq; Yeast-Budding 3+ HPF (None Seen)
[2023-04-26 20:09] LABS: Urine Culture Reflex No No
[2023-04-27] MEDS: Phenazopyridine HCl 95 MG TAB PO SCH (20:36)
[2023-04-28 06:02] LABS: #Lymphocytes 0.9 thou/uL (1.20-3.40); #Monocytes 0.3 thou/uL (0.11-0.59); %Basophils 0.4 % (0.0-1.0); %Lymphocytes 10.9 % (21.0-51.0); %Monocytes 3.5 % (0.0-10.0); %Neutrophils 85.1 % (42.0-75.0); Hematocrit 37.9 % (36.0-47.0); Hemoglobin 11.6 g/dL (12.0-16.0); Mean Corpuscular HGB CONC 30.6 g/dL (32.0-36.0); Mean Corpuscular Hemoglobin 29.1 pg (27.0-31.0); Mean Platelet Volume 10.9 fL (7.4-10.4); Platelet Count 234 10x3/uL (130-400); RBC Distribution Width 15.6 % (11.5-14.5); Red Blood Cell (RBC) Count 3.98 mill/uL (4.20-5.40); White Blood Cell (WBC) Count 8.2 10x3/uL (4.8-10.8)
[2023-04-28 06:18] LABS: Anion Gap 13 mmol/L (10-20); BUN (Urea Nitrogen) 11 mg/dL (9.8-20.1); Calc. Creatinine Clearance 73 mL/min (70-130); Calcium 9.1 mg/dL (7.8-10.44); Carbon Dioxide 24 mmol/L (23-31); Chloride 108 mmol/L (98-107); Estimated GFR 93; Glucose 108 mg/dL (83-110); Potassium 3.7 mmol/L (3.5-5.1); Sodium 141 mmol/L (136-145)
[2023-05-01 09:08] VITALS: BP 128/72; TEMP 98.3
[2023-05-01 09:10] LABS: #Basophils 0.1 thou/uL (0.0-0.2); #Eosinphils 0.4 thou/uL (0.0-0.7); #Lymphocytes 2.7 thou/uL (1.20-3.40); #Monocytes 0.8 thou/uL (0.11-0.59); #Neutrophils 8.3 thou/uL (1.40-6.50); %Basophils 0.6 % (0.0-1.0); %Eosinophils 3.3 % (0.0-10.0); %Lymphocytes 21.7 % (21.0-51.0); %Monocytes 6.6 % (0.0-10.0); %Neutrophils 67.8 % (42.0-75.0); Hematocrit 48.4 % (36.0-47.0); Hemoglobin 14.5 g/dL (12.0-16.0); Mean Corpuscular Volume 96.7 fl (78.0-98.0); Mean Platelet Volume 9.6 fL (7.4-10.4); Platelet Count 310 10x3/uL (130-400); RBC Distribution Width 15.2 % (11.5-14.5); White Blood Cell (WBC) Count 12.2 10x3/uL (4.8-10.8)
== END 2023-05-01 13:35 | disposition home or self-care (01) | DRG 197 ==
LOC: NAV ACUTE 04-08 15:37
PROVIDERS: ADMIT Family Medicine; ATTEND Family Medicine
DX: J84.10 Pulmonary fibrosis, unspecified (principal); I50.30 Unspecified diastolic (congestive) heart failure; N39.0 Urinary tract infection, site not specified; S22.059A Unspecified fracture of T5-T6 vertebra, initial encounter for closed fracture; S22.069A Unspecified fracture of T7-T8 vertebra, initial encounter for closed fracture; I11.0 Hypertensive heart disease with heart failure; I50.9 Heart failure, unspecified; D64.9 Anemia, unspecified; M81.0 Age-related osteoporosis without current pathological fracture; Z90.49 Acquired absence of other specified parts of digestive tract; Z98.890 Other specified postprocedural states; Z88.5 Allergy status to narcotic agent; Z88.8 Allergy status to other drugs, medicaments and biological substances; Z88.0 Allergy status to penicillin; Z91.040 Latex allergy status; I25.2 Old myocardial infarction
CPT/HCPCS: 36415; 71045; 80048; 80053; 81001; 82565; 85025; 87086; 94640; J1650; J7512; J7517; J7611; J7620; J7626; Q0162